=== PATIENT | male | born 1995 | race Hispanic/Latino ===

== ENCOUNTER 2019-08-06 | Emergency (ER) | payer SELFPAY ==
[~2019-08-06] MED LIST: NAPROSYN500 MG PO
[2019-08-06 20:07] LABS: HEMOGLOBIN 17.3 g/dl (14.0-18.0); IMMATURE GRANULOCYTES 0.4 % (0.0-5.0); MEAN CELL VOLUME 85.3 fL CALC (80.0-100.0); MEAN CORPUSCULAR HGB 29.5 pG CALC (26.0-32.0); MEAN CORPUSCULAR HGB CONC 34.6 g/L CALC (32.0-36.0); NEUT# 5.11 thou/uL (1.82-7.42); RED BLOOD COUNT 5.86 mill/uL (4.70-6.10); RED CELL DISTRI WIDTH 12.8 % (11.5-15.5)
[2019-08-06 20:26] LABS: ALBUMIN 5.5 g/dL (3.2-5.0); ALKALINE PHOSPHATASE 86 u/l (38-126); ANION GAP 18 (6-22 (CALC)); BILIRUBIN, TOTAL 1.2 mg/dL (0.0-1.4); BUN 13 mg/dL (9-20); BUN/CREATININE RATIO 15 (12-20 (CALC)); CARBON DIOXIDE 27 mmol/l (22-30); CHLORIDE 99 mmol/l (95-108); CREATININE 0.9 mg/dL (0.7-1.3); GFR > 60 ML/MIN (>=60 (CALC)); GFR FOR AFR.AMER. > 60 ML/MIN (>=60 (CALC)); LIPASE 72 u/l (23-300); POTASSIUM 4.4 mmol/l (3.5-5.1); SGOT/AST 101 u/l (17-59); SODIUM 139 mmol/l (137-146); TOTAL PROTEIN 9.3 g/dL (6.3-8.2)
[2019-08-06] MEDS ORDERED: ZOFRAN4 MG/TAB PO (21:13)
[2019-08-06 21:44] LABS: URINE BILIRUBIN - DIPSTICK NEGATIVE (NEGATIVE); URINE BLOOD DIPSTICK NEGATIVE (NEGATIVE); URINE COLOR YELLOW; URINE GLUCOSE - DIPSTICK NEGATIVE (NEGATIVE); URINE KETONE TRACE mg/dL (NEGATIVE); URINE LEUK ESTERASE NEGATIVE (NEGATIVE); URINE NITRITE - DIPSTICK NEGATIVE (Negative); URINE PH 5.5 (4.5-8.0); URINE PROTEIN - DIPSTICK NEGATIVE (NEG-TRACE); URINE UROBILINOGEN - DIPSTICK 0.2 E.U./dL (0.2)
== END 2019-08-06 22:17 | disposition home or self-care (01) | DRG 392 ==
DX: R11.2 Nausea with vomiting, unspecified (principal); R19.7 Diarrhea, unspecified

== ENCOUNTER 2020-10-31 20:20 | Emergency (ER) | payer SELFPAY ==
[2020-10-31 20:20] VITALS: BP 128/78
[~2020-10-31 20:20] MED LIST changes: +ZOFRAN4 MG/TAB PO
[2020-10-31] MEDS ORDERED: AMOXICILLIN500 M2 PO (21:04)
== END 2020-10-31 21:55 | disposition home or self-care (01) | DRG 153 ==
LOC: ED 20:20
DX: H66.91 Otitis media, unspecified, right ear (principal)

== ENCOUNTER 2021-03-10 11:15 | Emergency (ER) | payer SELFPAY ==
[~2021-03-10 11:15] MED LIST changes: +AMOXICILLIN500 M2 PO
== END 2021-03-10 13:14 | disposition left against medical advice (07) | DRG 951 ==
LOC: ED 11:15 → LWOBS 13:14
DX: Z53.21 Procedure and treatment not carried out due to patient leaving prior to being seen by health care provider (principal)

== ENCOUNTER 2021-06-09 12:00 | Emergency (ER) | payer SELFPAY ==
[~2021-06-09] VITALS: Ht 172.7 cm; Wt 85.0 kg
[2021-06-09 15:10] VITALS: BP 146/90
== END 2021-06-09 15:15 | disposition home or self-care (01) | DRG 90 ==
LOC: ED 12:00
DX: S06.0X0A Concussion without loss of consciousness, initial encounter (principal); W20.8XXA Other cause of strike by thrown, projected or falling object, initial encounter; Y93.89 Activity, other specified; Y92.89 Other specified places as the place of occurrence of the external cause; Y99.0 Civilian activity done for income or pay

== ENCOUNTER 2021-06-24 09:06 | Emergency (ER) | payer SELFPAY ==
[~2021-06-24] VITALS: Ht 172.7 cm; Wt 86.0 kg
[2021-06-24 09:54] LABS: HEMATOCRIT 48.2 % (39.0-50.0); HEMOGLOBIN 17.2 g/dl (14.0-18.0); IMMATURE GRANULOCYTES 0.7 % (0.0-5.0); MEAN CELL VOLUME 85.3 fL CALC (80.0-100.0); MEAN CORPUSCULAR HGB 30.4 pG CALC (26.0-32.0); MEAN CORPUSCULAR HGB CONC 35.7 g/dL CAL (32.0-36.0); NEUT# 3.84 thou/uL (1.82-7.42); RED BLOOD COUNT 5.65 mill/uL (4.70-6.10); RED CELL DISTRI WIDTH 12.6 % (11.5-15.5)
[2021-06-24 10:48] LABS: ALBUMIN 4.8 g/dL (3.2-5.0); ALKALINE PHOSPHATASE 104 u/l (38-126); ANION GAP 15 (6-22 (CALC)); BUN 8 mg/dL (9-20); BUN/CREATININE RATIO 11 (12-20 (CALC)); CARBON DIOXIDE 27 mmol/l (22-30); CHLORIDE 103 mmol/l (95-108); CREATININE 0.7 mg/dL (0.7-1.3); GFR > 60 ML/MIN (>=60 (CALC)); GFR FOR AFR.AMER. > 60 ML/MIN (>=60 (CALC)); POTASSIUM 4.6 mmol/l (3.5-5.1); SGOT/AST 65 u/l (17-59); SODIUM 141 mmol/l (137-146); TOTAL PROTEIN 8.3 g/dL (6.3-8.2)
[2021-06-24 10:55] LABS: BILIRUBIN, TOTAL 0.7 mg/dL (0.0-1.4)
[2021-06-24 11:00] VITALS: BP 127/85
== END 2021-06-24 11:15 | disposition home or self-care (01) | DRG 103 ==
LOC: ED 09:06
PROVIDERS: Family Medicine
DX: F07.81 Postconcussional syndrome (principal)

== ENCOUNTER 2022-08-28 18:36 | Emergency (ER) | payer SELFPAY ==
[~2022-08-28] VITALS: Ht 172.7 cm; Wt 104.0 kg
[2022-08-28 19:36] LABS: BASO% 0.8 % (0-3); EOS% 3.2 % (0-8); HEMATOCRIT 42.7 % (39.0-50.0); HEMOGLOBIN 15.4 g/dl (14.0-18.0); IMMATURE GRANULOCYTES 0.3 % (0.0-5.0); LYMPH% 27.9 % (15-41); MEAN CELL VOLUME 85.1 fL CALC (80.0-100.0); MEAN CORPUSCULAR HGB 30.7 pG CALC (26.0-32.0); MEAN CORPUSCULAR HGB CONC 36.1 g/dL CAL (32.0-36.0); MONO% 8.5 % (2-13); NEUT# 3.76 thou/uL (1.82-7.42); NEUT% 59.3 % (42-76); RED BLOOD COUNT 5.02 mill/uL (4.70-6.10); RED CELL DISTRI WIDTH 12.6 % (11.5-15.5)
[2022-08-28 19:45] VITALS: BP 121/90
[2022-08-28 19:48] LABS: ANION GAP 13 (6-22 (CALC)); BUN 14 mg/dL (9-20); BUN/CREATININE RATIO 15 (12-20 (CALC)); CARBON DIOXIDE 28 mmol/l (22-30); CHLORIDE 102 mmol/l (95-108); CREATININE 0.9 mg/dL (0.7-1.3); GFR FOR AFR.AMER. > 60 ML/MIN (>=60 (CALC)); GFR OTHER RACES > 60 ML/MIN (>=60 (CALC)); SODIUM 138 mmol/l (137-146)
[2022-08-28 20:00] VITALS: BP 127/88
[2022-08-28 21:39] VITALS: BP 127/88
== END 2022-08-28 21:49 | disposition home or self-care (01) | DRG 914 ==
LOC: ED 18:36
PROVIDERS: Emergency Medicine
DX: S09.90XA Unspecified injury of head, initial encounter (principal); S20.213A Contusion of bilateral front wall of thorax, initial encounter; V43.53XA Car driver injured in collision with pick-up truck in traffic accident, initial encounter
CPT/HCPCS: Q9967

== ENCOUNTER 2022-12-13 21:47 | Emergency (ER) | payer SELFPAY ==
[~2022-12-13] VITALS: Ht 172.7 cm; Wt 86.0 kg
[2022-12-13 21:56] VITALS: BP 146/105
[2022-12-13 22:00] VITALS: BP 151/107
[2022-12-13 22:46] VITALS: BP 151/107
== END 2022-12-13 22:55 | disposition left against medical advice (07) | DRG 316 ==
LOC: ED 21:47
DX: R09.89 Other specified symptoms and signs involving the circulatory and respiratory systems (principal); Z53.29 Procedure and treatment not carried out because of patient's decision for other reasons

== ENCOUNTER 2023-04-01 11:20 | Emergency (ER) | payer OTHER ==
[~2023-04-01] VITALS: Ht 172.7 cm; Wt 88.5 kg
[2023-04-01] MEDS ORDERED: MAXITROL 0.1 %1 SUS OU (12:03)
[2023-04-01 12:20] VITALS: BP 122/72
== END 2023-04-01 12:20 | disposition home or self-care (01) | DRG 125 ==
LOC: ED 11:20
DX: S05.02XA Injury of conjunctiva and corneal abrasion without foreign body, left eye, initial encounter (principal); S05.01XA Injury of conjunctiva and corneal abrasion without foreign body, right eye, initial encounter